=== PATIENT | male | born 1965 | race Caucasian/White ===

== ENCOUNTER 2020-10-18 17:39 | Emergency (ER) | payer MEDICARE, OTHER ==
[~2020-10-18 17:39] MED LIST: IBUPROFEN600 MG PO
[2020-10-18 18:58] LABS: HEMOGLOBIN 15.1 gm/dl (14.0-17.5); RED BLOOD COUNT 5.24 M/UL (4.20-5.50); WHITE BLOOD COUNT 8.6 K/UL (4.5-11.0)
[2020-10-18 19:27] LABS: BUN/CREATININE RATIO 16 (0-10)
[2020-10-18] MEDS ORDERED: KEFLEX CAP 250250 MG PO (23:39)
== END 2020-10-19 00:10 | disposition home or self-care (01) ==
LOC: ER1 17:39
PROVIDERS: Physician Assistant
DX: S80.811A Abrasion, right lower leg, initial encounter (principal); L03.115 Cellulitis of right lower limb; I10 Essential (primary) hypertension; Z90.49 Acquired absence of other specified parts of digestive tract; Z79.899 Other long term (current) drug therapy; X58.XXXA Exposure to other specified factors, initial encounter
CPT/HCPCS: 36600; 71045; 73552; 73590; 73610; 80053; 82550; 82553; 82803; 83874; 83880; 84439; 84443; 84484; 85025; 85379; 93005; 96374; 99284; J0360; Q9967

== ENCOUNTER → 2020-10-26 | Outpatient (CLI) | payer MEDICARE, OTHER ==
[~2020-10-26] MED LIST changes: +KEFLEX CAP 250250 MG PO
== END ==
LOC: KOH-I 15:36
DX: M79.89 Other specified soft tissue disorders (principal); M79.604 Pain in right leg
CPT/HCPCS: 93971